=== PATIENT | male | born 1975 | race Two or more races ===

== ENCOUNTER 2023-04-17 04:40 | Day surgery (SDC) | payer OTHER ==
[2023-04-11 13:38] VITALS: BMI 28.7
[2023-04-17 13:43] VITALS: PULSE 70; RESP 14
[2023-04-17 13:44] VITALS: BP 110/72; TEMP 97.8
== END 2023-04-17 13:40 | disposition home or self-care (01) ==
LOC: JASU-ENDO 04:40
PROVIDERS: ATTEND Internal Medicine Gastroenterology
PROC: 0DJD8ZZ Inspection of Lower Intestinal Tract, Via Natural or Artificial Opening Endoscopic (ICD-10-PCS; principal; 2023-04-17 12:00)
DX: Z12.11 Encounter for screening for malignant neoplasm of colon (principal)